=== PATIENT | male | born 1950 | race African-American/Black ===

== ENCOUNTER 2016-09-20 19:35 | Emergency (ER) | payer MEDICARE ==
[~2016-09-20] VITALS: Ht 175.3 cm; Wt 88.5 kg
[2016-09-20] MEDS ORDERED: CHLORPROMAZINE 25 MG PO ONE (20:30)
[2016-09-20] MEDS ORDERED: CHLORPROMAZINE 50 MG/2 ML IM ONE ×2 (20:30→20:45)
[2016-09-20 20:45] LABS: BASO % 1 % (0-3); EOS % 1 % (0-3); HEMOGLOBIN 14.4 g/dL (13.0-17.5); LYMPH % 19 % (24-48); MEAN CORPUSCULAR HEMOGLOBIN 31 pg (25-35); MEAN CORPUSCULAR HGB CONC 34 g/dL (31-37); MEAN CORPUSCULAR VOLUME 92 fL (79-100); MONO % 15 % (0-9); NEUT % 65 % (31-73); PLATELET COUNT 135 x10^3/uL (140-400); RED BLOOD COUNT 4.67 x10^6/uL (4.30-5.70); RED CELL DISTRIBUTION WIDTH 14.1 % (11.5-14.5); WHITE BLOOD COUNT 5.3 x10^3/uL (4.0-11.0)
--- NOTE | 2016-09-20 20:45 | PHYS DOC ---
Past Medical History Past Medical History: Diabetes-Type II, Hypertension Past Surgical History: No Surgical History Alcohol Use: None Drug Use: None Adult General Chief Complaint Chief Complaint: HICCUPS/SINGULTUS HPI HPI Patient is a 65 year old male who presents with hiccups. Patient reports on 09/16 he started having a little bit of a scratchy throat, and then he started having persistent hiccups. He saw his primary care physician that same day and was prescribed baclofen. He has been taking this with no improvement in the hiccups. Only other complaint is minor cold symptoms, however these have gotten better with Mucinex. No chest discomfort, abdominal pain, or SOB. No other acute complaints. Patient reports in 2011 he had a similar episode, which resolved after he started taking baclofen. Review of Systems Review of Systems Constitutional: Hiccups. Denies fever or chills Eyes: Denies change in visual acuity or eye pain HENT: Runny nose, improved. Denies nasal congestion or sore throat Respiratory: Denies cough or shortness of breath Cardiovascular: Denies chest pain GI: Denies abdominal pain, nausea, vomiting, bloody stools or diarrhea : Denies dysuria or hematuria Musculoskeletal: Denies back pain or joint pain Integument: Denies rash or skin lesions Neurologic: Denies headache, focal weakness or sensory changes Current Medications Current Medications Current Medications Medications (Trade) Dose Ordered Sig/Camilo Start Time Stop Time Status Last Admin Dose Admin Chlorpromazine HCl (Thorazine Im) 25 mg 1X ONCE 09/20/16 20:45 09/20/16 20:46 DC 09/20/16 20:38 25 MG Chlorpromazine HCl (Thorazine) 25 mg 1X ONCE 09/20/16 20:30 09/20/16 20:38 DC Potassium Chloride (Klor-Con) 20 meq 1X ONCE 09/20/16 21:15 09/20/16 21:16 DC 09/20/16 21:35 20 MEQ Allergies Allergies Allergies Coded Allergies Type Severity Reaction Last Updated Verified No Known Drug Allergies 09/20/16 No Physical Exam Physical Exam Constitutional: Frequent hiccups. Well developed, well nourished, no acute distress, non-toxic appearance HENT: Normocephalic, atraumatic, bilateral external ears normal Eyes: EOMI, conjunctiva normal, no discharge Neck: Normal range of motion, no stridor Cardiovascular: Heart rate normal, regular rhythm, no murmur Lungs & Thorax: Bilateral breath sounds clear to auscultation Abdomen: Bowel sounds normal, soft, non-distended, no TTP Skin: Warm, dry, no erythema, no rash Extremities: No obvious deformity, no edema Neurologic: Alert and oriented X 3, no gross deficits noted Psychologic: Affect normal, judgement normal, mood normal Current Patient Data Vital Signs Vital Signs Date Time Temp Pulse Resp B/P Pulse Ox O2 Delivery O2 Flow Rate FiO2 09/20/16 21:30 78 19 146/71 Room Air 09/20/16 19:53 98.3 97 98.3 Lab Values Laboratory Tests Test 09/20/16 20:30 White Blood Count 5.3x10^3/uL (4.0-11.0) Red Blood Count 4.67x10^6/uL (4.30-5.70) Hemoglobin 14.4g/dL (13.0-17.5) Hematocrit 43.0% (39.0-53.0) Mean Corpuscular Volume 92fL (79-100) Mean Corpuscular Hemoglobin 31pg (25-35) Mean Corpuscular Hemoglobin Concent 34g/dL (31-37) Red Cell Distribution Width 14.1% (11.5-14.5) Platelet Count 135x10^3/uL (140-400) L Neutrophils (%) (Auto) 65% (31-73) Lymphocytes (%) (Auto) 19% (24-48) L Monocytes (%) (Auto) 15% (0-9) H Eosinophils (%) (Auto) 1% (0-3) Basophils (%) (Auto) 1% (0-3) Neutrophils # (Auto) 3.4x10^3uL (1.8-7.7) Lymphocytes # (Auto) 1.0x10^3/uL (1.0-4.8) Monocytes # (Auto) 0.8x10^3/uL (0.0-1.1) Eosinophils # (Auto) 0.1x10^3/uL (0.0-0.7) Basophils # (Auto) 0.0x10^3/uL (0.0-0.2) Sodium Level 141mmol/L (136-145) Potassium Level 3.4mmol/L (3.5-5.1) L Chloride Level 105mmol/L (98-107) Carbon Dioxide Level 29mmol/L (21-32) Anion Gap 7 (6-14) Blood Urea Nitrogen 21mg/dL (8-26) Creatinine 1.4mg/dL (0.7-1.3) H Estimated GFR (Cockcroft-Gault) 61.2 BUN/Creatinine Ratio 15 (6-20) Glucose Level 118mg/dL (70-99) H Calcium Level 8.6mg/dL (8.5-10.1) Total Bilirubin 0.4mg/dL (0.2-1.0) Aspartate Amino Transferase (AST) 29U/L (15-37) Alanine Aminotransferase (ALT) 31U/L (16-63) Alkaline Phosphatase 61U/L (46-116) Total Protein 7.2g/dL (6.4-8.2) Albumin 3.6g/dL (3.4-5.0) Albumin/Globulin Ratio 1.0 (1.0-1.7) Laboratory Tests 09/20/16 20:30 Laboratory Tests 09/20/16 20:30 EKG EKG EKG (my read): sinus rhythm, rate 75, LAD, IVCD ,TWI lead V5-6, no acute ST changes Radiology/Procedures Radiology/Procedures CXR (my read): No significant change from prior Course & Med Decision Making Course & Med Decision Making Pertinent Labs and Imaging studies reviewed. (See chart for details) Patient is 65-year-old male who presents with persistent hiccups. Will check chest x-ray, labs, EKG to assess for etiology. Will give dose of IM Thorazine. EKG and imaging results as above. Labs largely unremarkable, slight hypokalemia treated with oral potassium replacement. Discussed results with patient; hiccups appear to have resolved at this time. Will discharge with short course of PO Thorazine should he have any further hiccups. Given instructions for follow-up with PCP and return precautions. Dragon Disclaimer Dragon Disclaimer This electronic medical record was generated, in whole or in part, using a voice recognition dictation system. Departure Departure Impression: Primary Impression: Hiccups Disposition: 01 HOME, SELF-CARE Condition: IMPROVED Referrals: WHITNEY KYLE (PCP) Patient Instructions: Hiccups Additional Instructions: Thank you for allowing us to provide care today in the Emergency Department. Take the provided medication as directed. Use caution when taking this medication as it can make you drowsy. Schedule a follow up appointment with your primary care doctor. Return promptly to the Emergency Department if you develop any new or concerning symptoms. Scripts Chlorpromazine Hcl 25 Mg [id number] Mg PO TID PRN HICCUPS #6 Prov:JOSE BUSTILLO MD 09/20/16 JOSE BUSTILLO MD Sep 20, 2016 20:45
[2016-09-20 20:51] LABS: CALCIUM 8.6 mg/dL (8.5-10.1); CREATININE 1.4 mg/dL (0.7-1.3); GFR 61.2; POTASSIUM 3.4 mmol/L (3.5-5.1)
[2016-09-20 20:57] LABS: ALBUMIN 3.6 g/dL (3.4-5.0); TOTAL BILIRUBIN 0.4 mg/dL (0.2-1.0); TOTAL PROTEIN 7.2 g/dL (6.4-8.2)
[2016-09-20] MEDS ORDERED: POTASSIUM CHLORIDE 20 MEQ TABLET.ER. PO ONE (21:15)
[2016-09-20] MEDS ORDERED: CHLO25TA4 PO (21:29)
[2016-09-20 21:30] VITALS: BP 146/71
--- NOTE | 2016-09-21 06:14 | EKG ---
[facility] [address] [place] [address] Test Date: 2016-09-20 Test Time: 20:17:11 Pat Name: COLIN SOLIS Department: Room: Gender: M [employer]icer [employer]: : 1950 Requested By: JOSE BUSTILLO Order Number: [id number] Reading MD: Paulette Rowell Measurements Intervals [place] Rate: 75 P: 51 SD: 184 QRS: -81 QRSD: 122 T: 90 QT: 404 QTc: 454 Interpretive Statements SINUS RHYTHM LEFT ATRIAL ABNORMALITY ABNORMAL LEFT AXIS DEVIATION LOW LIMB LEAD VOLTAGE QRS(T) CONTOUR ABNORMALITY CONSIDER ANTEROSEPTAL MYOCARDIAL DAMAGE T ABNORMALITY IN LATERAL LEADS RI6.01 Unconfirmed report No previous ECG available for comparison Electronically Signed On 09-23-2016 10:44:45 CDT by Paulette Rowell
--- NOTE | 2016-09-21 08:18 | RAD ---
Indication: Persistent hiccups. Technique: Two-view chest radiograph was obtained. Comparison is from November 01, 2010. Findings: The lungs are clear. The cardiopulmonary silhouette is within normal limits. There is no pleural effusion. The bony structures are intact. Leads overlie the patient. Impression: No acute thoracic findings.
== END 2016-09-20 21:38 | disposition home or self-care (01) ==
LOC: ER 19:35
DX: R06.6 Hiccough (principal); E11.9 Type 2 diabetes mellitus without complications; I10 Essential (primary) hypertension
CPT/HCPCS: 36415; 71020; 80053; 85027; 93005; 96372; 99285; J3230

== ENCOUNTER 2017-06-04 13:18 | Emergency (ER) | payer MEDICARE ==
[~2017-06-04] VITALS: Ht 175.3 cm; Wt 86.2 kg
[~2017-06-04 13:18] MED LIST: CHLO25TA4 PO
[2017-06-04 13:38] VITALS: BP 145/78
[2017-06-04] MEDS ORDERED: CYCL10TA2 PO (14:09)
--- NOTE | 2017-06-04 14:10 | PHYS DOC ---
Past Medical History Past Medical History: Diabetes-Type II, Hypertension Past Surgical History: No Surgical History Alcohol Use: None Drug Use: None Adult General Chief Complaint Chief Complaint: Neck Pain [facility] HPI Patient is a 66 year old male presents to the emergency department with a history of neck pain on the left for the last 2 days. Patient states he woke up the pain. He states that he had went to the pharmacist and bought some over-the- counter medications to place on his neck with no relief. He states that his been taking ibuprofen 800 mg with no relief. He states he is able to turn his head completely to the right but he has increased pain and discomfort turning to the left. Patient denies any numbness or tingling down to the lower extremities. He denies any chest pain or shortness of air. Review of Systems Review of Systems Constitutional: Denies fever or chills [] Eyes: Denies change in visual acuity, redness, or eye pain [] HENT: Denies nasal congestion or sore throat [] Respiratory: Denies cough or shortness of breath [] Cardiovascular: No additional information not addressed in HPI [] GI: Denies abdominal pain, nausea, vomiting, bloody stools or diarrhea [] : Denies dysuria or hematuria [] Musculoskeletal: C/o left neck pain denies joint pain Integument: Denies rash or skin lesions [] Neurologic: Denies headache, focal weakness or sensory changes [] Endocrine: Denies polyuria or polydipsia [] All other systems were reviewed and found to be within normal limits, except as documented in this note. Allergies Allergies Allergies Coded Allergies Type Severity Reaction Last Updated Verified No Known Drug Allergies 09/20/16 No Physical Exam Physical Exam Constitutional: Well developed, well nourished, no acute distress, non-toxic appearance. [] HENT: Normocephalic, atraumatic, bilateral external ears normal, oropharynx moist, no oral exudates, nose normal. [] Eyes: PERRLA, EOMI, conjunctiva normal, no discharge. [] Neck: Normal range of motion, no tenderness, supple, no stridor. [] Cardiovascular:Heart rate regular rhythm, no murmur [] Lungs & Thorax: Bilateral breath sounds clear to auscultation [] Skin: Warm, dry, no erythema, no rash. [] Back: No cervical spine tenderness, no crepitus, no deformity, no step-offs noted. no CVA tenderness.Was noted in the left upper shoulder to neck area. Extremities: No tenderness, no cyanosis, no clubbing, ROM intact, no edema. [] Neurologic: Alert and oriented X 3, normal motor function, normal sensory function, no focal deficits noted. Equal pilates coordinator noted bilaterally. Psychologic: Affect normal, judgement normal, mood normal. [] Current Patient Data Vital Signs Vital Signs Date Time Temp Pulse Resp B/P (MAP) Pulse Ox O2 Delivery O2 Flow Rate FiO2 06/04/17 13:38 97.9 68 18 98 Room Air 97.9 EKG EKG [] Radiology/Procedures Radiology/Procedures [] Course & Med Decision Making Course & Med Decision Making Pertinent Labs and Imaging studies reviewed. (See chart for details) Patient states that he has ibuprofen 800 mg at home. Encourage him to take this every 8 hours with food septate if he developed an upset stomach. He'll be provided with Flexeril for muscle spasms. He was instructed this medication will cause drowsiness do not think it is be alert and oriented. On 20 minutes off 20 minutes several times a day. Patient agrees with discharge instructions treatment regimens and follow-up recommendations. I've spoken with the patient and/or caregivers. I've explained the patient's condition, diagnosis and treatment plan based on information available to me at this time. I've answered the patient's and/or caregivers questions and addressed any concerns. The patient and/or caregivers have a good understanding the patient's diagnosis, condition and treatment plan as can be expected at this point. Vital signs have been stabilized. The patient's condition is stable for discharge from the emergency department. The patient will pursue further outpatient evaluation with her primary care provider or other designated consulting physician as outlined in the discharge instructions. Patient and/or caregivers are agreeable to this plan of care and follow-up instructions have been explained in detail. The patient and/or caregivers have received these instructions in written format and expressed understanding of these discharge instructions. The patient and her caregivers are aware that if any significant change in condition or worsening of symptoms should prompt him to immediately return to this of the closest emergency department. If an emergent department is not readily available I would encourage him to call 911. Ysabel Disclaimer Ysabel Disclaimer This electronic medical record was generated, in whole or in part, using a voice recognition dictation system. Departure Departure Impression: Primary Impression: Acquired torticollis Disposition: 01 HOME, SELF-CARE Condition: STABLE Referrals: WHITNEY KYLE (PCP) Patient Instructions: Torticollis, Acute Additional Instructions: Activity as tolerated Continue with the Ibuprofen 800 mg every 8 hours. Take this medication with food , stop taking if you develop upset stomach Flexeril will cause drowsiness do not take if you need to be alert and oriented, Ice packs on 20 minutes and off 20 minutes several times a day Followup with your primary care provider in 7-10 days Return to emergency department as needed for signs and symptoms that become worse. Scripts Cyclobenzaprine Hcl (CYCLOBENZAPRINE HCL) 10 Mg Tablet 1 TAB PO TID Y for MUSCLE SPASMS, #30 TAB Prov: LUCINDA NAJERA APRN 06/04/17 LUCINDA NAJERA APRN Jun 04, 2017 14:10
== END 2017-06-04 14:15 | disposition home or self-care (01) ==
LOC: ER 13:18
DX: M43.6 Torticollis (principal); E11.9 Type 2 diabetes mellitus without complications; I10 Essential (primary) hypertension
CPT/HCPCS: 99283

== ENCOUNTER 2019-08-23 14:52 | Emergency (ER) | payer BC, MEDICARE ==
[~2019-08-23] VITALS: Ht 175.3 cm; Wt 86.0 kg
[~2019-08-23 14:52] MED LIST changes: +CYCL10TA2 PO
--- NOTE | 2019-08-23 18:38 | PHYS DOC ---
Past Medical History Past Medical History: Diabetes-Type II, High Cholesterol, Hypertension Past Surgical History: No Surgical History Smoking Status: Never Smoker Alcohol Use: None Drug Use: None Adult General Chief Complaint Chief Complaint: HICCUPS/SINGULTUS HPI HPI Patient is a 68 year old male who presents with the chief complaint of hiccups. Patient has previous past medical history of hiccups. Episodes started x 1 week. Associate cough without sputum and runny stuffy nose with congestion. States in the past after getting over common colds his hiccups are usually exacerbated. Denies any associated chest pain or shortness of breath. Has been taking PO thorazine with no relief. States he usually comes to ER and gets IV treatment. Review of Systems Review of Systems All other systems were reviewed and found to be within normal limits, except as documented in this note. Review of systems: Constitutional symptoms- No fever, no chills. Eyes- No Discharge, No Visual Loss, Respiratory symptoms- No shortness of breath, No wheezing, No Dyspnea on Exertion, positive hiccups Cardiovascular Systems; No chest pain.No Palpitations, No syncope Gastrointestinal symptoms: NO abdominal pain, no nausea, no vomiting or diarrhea. Genitourinary symptoms: No dysuria. No vaginal bleeding. Musculoskeletal symptoms: No back pain or extremity pain. NEUROLOGICAL Symptoms: No headache, no generalized weakness; No focal Weakness, Current Medications Current Medications Current Medications Medications (Trade) Dose Ordered Sig/Camilo Start Time Stop Time Status Last Admin Dose Admin Chlorpromazine HCl (Thorazine Im) 25 mg 1X ONCE 08/23/19 19:30 08/23/19 19:31 DC 08/23/19 19:40 25 MG Allergies Allergies Allergies Coded Allergies Type Severity Reaction Last Updated Verified No Known Drug Allergies 09/20/16 No Physical Exam Physical Exam General: alert, no acute distress. Skin: warm, dry and intact. Head:: Normocephalic, atraumatic. Neck; Supple. Trachea midline. Eyes: pupils equal, round, reactive to light accommodation. CARDIOVASCULAR: Regular rate and rhythm. RESPIRATORY: No respiratory distress. Back: Full range of motion. MUSCULOSKELETAL: Full range of motion of bilateral upper and lower extremities. GASTROINTESTINAL: ABD soft without rebound or guarding. NEUROLOGICAL: Alert and noted to person, place and time. No neurological defic its observed. Psychiatric: Cooperative. Normal judgment Current Patient Data Vital Signs Vital Signs Date Time Temp Pulse Resp B/P (MAP) Pulse Ox O2 Delivery O2 Flow Rate FiO2 08/23/19 18:11 78 18 149/100 (116) 97 Room Air 08/23/19 17:55 98.3 98.3 EKG EKG [] Radiology/Procedures Radiology/Procedures [] Course & Med Decision Making Course & Med Decision Making Pertinent Labs and Imaging studies reviewed. (See chart for details) In review of patient's past medical history was previously treated with chlorpromazine 25 mg IM. Patient received a second dose of chlorpromazine 25mg with improvement. Patient was discharged home. Dragon Disclaimer Dragon Disclaimer This electronic medical record was generated, in whole or in part, using a voice recognition dictation system. Departure Departure Disposition: 01 HOME, SELF-CARE Condition: STABLE Referrals: WHITNEY KYLE (PCP) Patient Instructions: FAHAD Trinh DO Aug 23, 2019 18:38
[2019-08-23] MEDS ORDERED: chlorproMAZINE IM 25 MG/ML AMPUL IM ONE ×2 (18:45→19:30)
[2019-08-23 19:40] VITALS: BP 161/95
== END 2019-08-23 20:19 | disposition home or self-care (01) ==
LOC: ER 14:52
DX: R06.6 Hiccough (principal); R09.81 Nasal congestion; E11.9 Type 2 diabetes mellitus without complications; E78.00 Pure hypercholesterolemia, unspecified; I10 Essential (primary) hypertension
CPT/HCPCS: 96372; 99284; J3230

== ENCOUNTER → 2020-02-23 | Outpatient (CLI) | payer BC ==
--- NOTE | 2020-02-23 17:12 | RAD ---
Left lower extremity venous doppler ultrasound History: Left leg pain and swelling Comparison: None Findings: Multiple grayscale, color, and duplex spectral analysis sonographic images were acquired of the left lower extremity veins to evaluate for the presence of DVT. There is normal phasicity. Normal compression, color-flow, and augmentation is demonstrated from the left common femoral to the popliteal veins. There is normal color flow of the proximal greater saphenous and profunda femoris veins. There is normal color flow of segments of the calf veins. There is left popliteal fossa fluid collection up to about 2.6 x 4.2 x 1.1 cm. Impression: 1. There is no evidence of deep venous thrombosis from the left common femoral to the popliteal veins. 2. There is left popliteal fossa fluid collection. Electronically signed by: Fernie Zavaleta MD (02/23/2020 5:09 PM) [id number]
== END | disposition home or self-care (01) ==
LOC: US 16:06
PROVIDERS: ATTEND Internal Medicine
DX: R22.42 Localized swelling, mass and lump, left lower limb (principal); M79.89 Other specified soft tissue disorders; M79.662 Pain in left lower leg
CPT/HCPCS: 93971